=== PATIENT | female | born 1930 | race Caucasian/White ===

== ENCOUNTER 2018-04-23 06:02 | Day surgery (SDC) | payer OTHER, BC ==
[~2018-04-23] VITALS: Ht 154.9 cm; Wt 54.4 kg
--- NOTE | ~2018-04-23 | PATH ---
[facility] [address] [place] [address] PATHOLOGY RPT PROCEDURE Name: BERNICE MILLER Room #: [place] [facility] [place].R.#: [id number] Admission: 04/23/18 Date of : 34 Discharge: 04/23/18 Report #: [id number] Path Case #: [id number] LCA Accession Number: [id number] . 01 Material submitted: . LEFT BREAST MASS, SHORT SUTURE SUPERIOR, LONG SUTURE LATERAL . 01 Clinician provided ICD-10: ' . 01 Clinical history: . Left breast mass . 02 Diagnosis: "Left breast mass", lumpectomy: - Benign breast tissue with previous biopsy site changes. - Small scattered foci of fibrocystic changes including stromal fibrosis, cyst formation, usual duct hyperplasia, columnar cell hyperplasia and duct ectasia; no cytologic atypia or malignancy seen. [facility]/04/27/2018 . 02 Comment: The patient has a history of "complex sclerosing lesion" from a previous left breast 12:00 position 5 cm from nipple needle core biopsy (Umair and Trevor case [id number]; biopsy report reviewed only, no slide review performed). Again, no cytologic atypia or malignancy is identified within the current lumpectomy specimen. Clinical and radiographic correlation is recommended. The case is discussed with Dr. Sam Muñoz on 04/27/2018 at 9:00 AM and again at approximately 2:30 PM. (CLW:pit; 04/27/2018) . 02 Electronically signed: . Alanis Steward MD, Pathologist NPI- [id number] . 01 Gross description: . The specimen is received fresh from the OR labeled, "Bernice Miller, left breast mass, short suture superior, long suture lateral" is an oriented lumpectomy specimen. Received on an [facility] map with needle localization wire in place and accompanying mammographic films, is an oriented lumpectomy. The area of interest under the needle localization wire is inked orange. The specimen is fixed in formalin. Reported time out of body is 1155 on 04/23/18. Time placed in formalin is 1225 on 04/23/18. (CLW:mgr; 04/23/18) . Received is a 37 g lumpectomy specimen oriented with a short suture [address] [address] PATHOLOGY RPT PROCEDURE Name: BERNICE MILLER Room #: [place] [facility] M.R.#: [id number] Admission: 04/23/18 Date of : 32 Discharge: 04/23/18 Report #: [id number] Path Case #: [id number] designating the superior margin and a long suture designating the lateral margin. The specimen measures 6.6 cm from medial to lateral, 6.3 cm from anterior to posterior, and 2.9 cm from superior to inferior. There is an attached ellipse of skin pale ponce skin on the anterior aspect measuring 3.8 x 0.6 cm. There is a slight amount of orange ink applied to the superior aspect indicating the area of interest. The specimen is inked as follows: Superior-blue, inferior-green, lateral-red, medial-yellow, anterior-black, posterior-orange. Sectioning reveals a slight amount of white-ponce fibrous tissue present, with a slight amount of fat necrosis, underneath the previously inked orange area of suspicion. No distinct tumor is grossly identified. The specimen is submitted representatively as follows: . A1 most medial margin A2 most lateral margin A3-A8 entire area of suspicion submitted from medial to lateral aspects. . The cold ischemic time is 30 minutes. The total formalin fixation time is 57 hours and 25 minutes. (CAA; 04/25/2018) QAC/QRQ . 02 Pathologist provided ICD-10: N60.12, N60.32, N62, N60.42 . 02 CPT . 768774 Performed at: [address], [place] [id number] MD Lazarus Lyn MD Phone: [phone] Performed at: [address] [id number] MD Lindsey Cortez MD Phone: [phone]
--- NOTE | ~2018-04-23 | O ---
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 POSTOPERATIVE DIAGNOSIS: Complex sclerosing lesion/radial scar in the left breast at 12 o'clock, 5 mm in size. PROCEDURES PERFORMED: Left lumpectomy with ultrasound-placed needle localization. ANESTHESIA: IV sedation, local 0.25% Marcaine. COMPLICATIONS: None. ESTIMATED BLOOD LOSS: 5 mL. FINDINGS: The mammographic evaluation of the specimen suggested the nodule is removed within the specimen. DESCRIPTION OF PROCEDURE: With the patient under IV sedation, the left breast was prepped and draped in sterile fashion. The area of the lesion was seen on ultrasound and a marking pen was placed directly over this. The left breast was then prepped and draped in sterile fashion. Timeout was performed. Then, using the ultrasound in a sterile sleeve, a needle was placed lateral to the lesion and the tip of a spinal needle was left at the site of the lesion. The rest of the skin was then anesthetized with 0.25% Marcaine. Small ellipse of the skin was excised, which included the spinal needle. Dissection was then carried superiorly and inferiorly, freeing the breast tissue from the overlying skin and then the breast was dissected medial to about 10:30 position. The posterior dissection was then carried out to the level of the pectoralis fascia at the central portion of the lumpectomy. The lumpectomy specimen was then lifted out of the breast. The lateral dissection was then completed. Suture was placed superiorly, short stitch was placed superiorly and a longer stitch was placed laterally. Specimen was sent to mammography. I did receive a call, it looks like the lumpectomy specimen does contain a nodular density. Pathologist was then asked to come and take the specimen. I described to her the orientation of the specimen. At the end of the case, she and I both can feel a thickening consistent with the lesion or the biopsy effect. The specimen will be processed [address] [address] OPERATIVE REPORT Name: ROBBY MILLER Room #: DEP [facility] [place] M.R.#: [id number] Admission: 04/23/18 Attend Phys: Sam Muñoz MD Discharge: 04/23/18 Date of : 32 Report #: [id number] for permanent section with analysis of the margins. Hemostasis was obtained and irrigation was performed. The subcutaneous tissue was closed with 4-0 PDS. Skin was closed with 5-0 PDS. Dermabond, fluffy 4 x 4, and OpSite were used for dressing. The patient tolerated the procedure well. By: 1117 1144 Sam Muñoz MD /nt
--- NOTE | ~2018-04-23 | H ---
[facility] [place] [address] [place] [address] HISTORY AND PHYSICAL Name: ROBBY MILLER Room #: [place] [facility] [place].R.#: [id number] Admission: Attend Phys: Sam Muñoz MD Discharge: Date of : 32 Report #: [id number] THIS REPORT FOR: //name// CC: Sam Spears MD DATE OF SERVICE: 04/23/2018 PREOPERATIVE DIAGNOSIS: Left breast mass at 12 o'clock, ____ cm from the nipple, which was diagnosed as complex sclerosing lesion/radial scar. The patient is here for excision of this lesion. HISTORY OF PRESENT ILLNESS: The patient is an 87-year-old who has had yearly mammogram. Her latest mammogram showed a 5-mm nodule in the left upper outer quadrant. This had a spiculated margin 6 cm posterior to the nipple. Ultrasound was performed. The right breast was unremarkable. Ultrasound showed a 5-mm hypoechoic nodule with irregular margins corresponding to the mammographic abnormality. The patient was seen in the office and a biopsy was performed. The patient does not do self-exam. She denies any skin changes. No discharge. The patient does have family history of breast cancer. Daughter had breast cancer at age 46 in 2003. She had chemoradiation. A paternal aunt had breast cancer at age 65. A biopsy was performed in the office under ultrasound guidance. This was somewhat difficult because the lesion was quite small. The pathology report showed a complex sclerosing lesion. The lesion was felt to be complex sclerosing lesion/radial scar. Excision is recommended. The patient is here for excisional biopsy of this mass. PAST MEDICAL HISTORY: The patient had kidney infection with urosepsis and history of laryngitis. PAST SURGICAL HISTORY: Right breast biopsy of benign nodule in 1997; hysterectomy for cervical carcinoma in situ; 4 abdominal kidney stone surgeries in her 20s and 30s. MEDICATIONS: The patient takes Lipitor, Sular tabs, Prilosec, tramadol, Macular Shield, calcium, fish oil, flaxseed oil, vitamin B12, magnesium, Tylenol Extra Strength. ALLERGIES: SHE IS ALLERGIC TO KEFLEX, CAUSED A RASH; CYMBALTA CAUSES BAD DIARRHEA. FAMILY HISTORY: Father had a stroke and also had heart attack. Mother had colon cancer that metastasized to the liver. 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 She does not [address] [place] [address] HISTORY AND PHYSICAL Name: ROBBY MILLER Room #: [place] [facility] [place] M.R.#: [id number] Admission: Attend Phys: Sam Muñoz MD Discharge: Date of : 32 Report #: [id number] smoke, does not drink. REVIEW OF SYSTEMS: She does have history of macular degeneration, diagnosed 12 years ago. She has arthritis. No chest pain or shortness of breath. PHYSICAL EXAMINATION: GENERAL: The patient is a well-developed, well-nourished, elderly female, in no acute distress. HEENT: Pupils react to light. Extraocular muscles are intact. Oropharynx is clear. NECK: Soft and supple, no masses. LUNGS: Clear to auscultation. HEART: Regular rate and rhythm, no murmur or gallop. ABDOMEN: Soft, nondistended, nontender. BREASTS: No dominant mass detected. No skin changes. No axillary adenopathy. No supraclavicular adenopathy. EXTREMITIES: No cyanosis, clubbing or edema. IMPRESSION: The patient is an 87-year-old who had an abnormal mammogram this year. A 5-mm nodule was identified in the upper outer quadrant on 3D mammography. Ultrasound showed at 12 o'clock, 4 cm from the nipple, there is a 5-mm hypoechoic nodule. Biopsy was performed. She does have fairly high risk for breast cancer as there is a family history. The biopsy was performed and came back with a complex sclerosing lesion. The patient is recommended to undergo excision of this. The procedure was discussed in detail. If the lesion does not get upgraded, then the patient does not need any further procedure. If this comes back invasive cancer, there is a possibility that the patient will need to have a lymph node biopsy. I am thinking the excisional biopsy be performed with lumpectomy in this elderly female. The patient understands and wishes to proceed. We will target the lesion with preop ultrasound. By: 28 58 Sam Muñoz MD /nt
--- NOTE | ~2018-04-23 | EKG ---
[address] [address] [facility] [place] [address] ELECTROCARDIOGRAM REPORT Name: ROBBY MILLER Room #: DEP [facility]#: [id number] Admission: 04/23/18 Attend Phys: Sam Muñoz MD Discharge: 04/23/18 Date of : 32 Report #: [id number] THIS REPORT FOR: //name// [facility] Test Date: 2018-04-23 Test Time: 10:08:01 Pat Name: ROBBY MILLER Department: Room: 150 10 Gender: F Cover Inspector: DAIANA : 1930 Requested By: Sam Muñoz Order Number: [id number] MD: Cesar Pratt Measurements Intervals [place] Rate: 72 P: 47 VA: 167 QRS: -18 QRSD: 104 T: 21 QT: 407 QTc: 446 Interpretive Statements Sinus rhythm Ventricular premature complex Borderline left axis deviation Borderline repolarization abnormality Compared to ECG 06/30/2011 15:36:02 Ventricular premature complex(es) now present Electronically Signed On 04-24-2018 8:35:11 CDT by Cesar Pratt [email or web address] <ELECTRONICALLY SIGNED> By: Cesar Pratt MD, [facility] 04/24/18 0835 1008 1008 Cesar Pratt MD, [facility] /EPI
[~2018-04-23 06:02] MED LIST: ASA5UEC; CALCIUM CITRAT1 EAC7 PO; CALCIUM CITRAT1 EAC9 PO; CARAFATE 1 GM TA1 G1 PO; COQ-10100 MG PO; FISH OIL 1,001000 M2 PO; FISH OIL 1,2001 EAC3; FLAXSEED OIL1000 MG PO; GLUCOSAMINE &1 EACH; HYDROCODON-ACE1 EAC7 PO; ICAPS TABLET1 EACH PO; LIPITOR10 MG PO; LIPITOR20 MG PO; LUTEIN20 MG PO; MAGNESIUM HYDR500 GM PO; PRESERVISION A1 EAC2 PO; PRILOSEC 20 MG20 MG PO; SULAR20 MG PO; SYSTANE ULTRA1 EACH OP; TRAMADOL 50 MG50 MG PO; TYLENOL EXTRA500 MG PO; VITAMIN B-12500 MCG PO; VITAMIN D-32000 UNIT PO
[2018-04-23 09:44] VITALS: BP 155/91
[2018-04-23 12:44] VITALS: BP 155/91
== END 2018-04-23 13:10 | disposition home or self-care (01) ==
LOC: OR 06:02 → TBA 06:02 → OR 07:45
DX: N60.12 Diffuse cystic mastopathy of left breast (principal); N60.02 Solitary cyst of left breast; Z87.09 Personal history of other diseases of the respiratory system; Z86.19 Personal history of other infectious and parasitic diseases; Z88.8 Allergy status to other drugs, medicaments and biological substances; Z90.710 Acquired absence of both cervix and uterus; Z98.890 Other specified postprocedural states; M19.90 Unspecified osteoarthritis, unspecified site; Z82.3 Family history of stroke; Z82.49 Family history of ischemic heart disease and other diseases of the circulatory system; Z83.79 Family history of other diseases of the digestive system
CPT/HCPCS: 50010; 50101; 50386; 50417; 51301; 54118; 56525; 56526; 62110; 62850; 70005

== ENCOUNTER 2021-08-23 13:33 | Inpatient (IN) | payer OTHER ==
[~2021-08-23] VITALS: Ht 152.4 cm; Wt 41.2 kg
--- NOTE | ~2021-08-23 | EMS ---
[address] [address] EMS Patient Care Report Name: BERNICE MILLER Room #: REG BRYANNA Carrillo#: [id number] Admission: 08/23/21 Attend Phys: Discharge: Date of : 32 Report #: [id number] THIS REPORT FOR: //name// Report Transmitted: 08/23/2021 14:30 EMS Care Summary [facility] Incident [id number] @ 08/23/2021 12:39 Incident Location [address] [place] [address] Patient BERNICE MILLER Female, 89 Years 1930 Patient Address [address] [place] [address] Patient History Hypertension (HTN),Hyperlipidemia, Patient Allergies Keflex,Other drug allergy, Patient Medications Prilosec, Amlodipine, Tramadol, Chief Complaint L hip pain Disposition Transported No Lights/[place] Dispatch Reason Falls Transported To [facility] Narrative Bernice fell while trying to get out of the bed. She complains of severe pain in her L hip and her R elbow. She did not hit her head or have a loss of consciousness. She thinks she fell at about 10am. Her daughter reports that confusion is normal for Bernice. She has not been ill recently. [facility] [address] [place] [address] EMS Patient Care Report Name: BERNICE MILLER Room #: DAVID Carrillo#: [id number] Admission: 08/23/21 Attend Phys: Discharge: Date of : 32 Report #: [id number] Upon our arrival we found her laying prone with her legs under the bed. Following pain control we rolled her onto a tarp stretcher and carried her down to the cot. She had no change en-route. Sheet pull to ED bed with report to RN. Initial Vitals @13:08P: 101,BP: 193/113,SpO2: 98, @13:18P: 94,BP: 183/105,SpO2: 97, @12:56P: 94,R: 18,BP: 156/102,Pain: 10/10,Temp: 98.2F,SpO2: 97, Impression Injury of Hip Procedures @12:54 IV Therapy - Saline Lock 10cc (18 ga) Site: Forearm-Left Response: UnchangedSucceeded @12:55 Fentanyl - 50 Micrograms (mcg) - Intravenous (IV) Response: Improved @13:01 Fentanyl - 50 Micrograms (mcg) - Intravenous (IV) Response: Improved @13:01 Stretcher Response: Unchanged @13:06 Surgical Mask on Patient Response: Unchanged Timeline 12:36,Call Received 12:36,Psap Call 12:39,Dispatched 12:40,En Route 12:47,On Scene 12:48,At Patient 12:54,IV Therapy - Saline Lock 10cc 18 ga Site: Forearm-Left,Response: UnchangedSucceeded, 12:55,Fentanyl - 50 Micrograms (mcg) - Intravenous (IV),Response: Improved 12:56,BP: 156/102 M,PULSE: 94,RR: 18 R,SPO2: 97 Ox,ETCO2: ,BG: ,PAIN: 10,GCS: , 13:01,Stretcher,Response: Unchanged 13:01,Fentanyl - 50 Micrograms (mcg) - Intravenous (IV),Response: Improved 13:06,Surgical Mask on Patient,Response: Unchanged 13:08,BP: 193/113 M,PULSE: 101,RR: R,SPO2: 98 Ox,ETCO2: ,BG: ,PAIN: ,GCS: , 13:09,Depart Scene 13:18,BP: 183/105 M,PULSE: 94,RR: R,SPO2: 97 Ox,ETCO2: ,BG: ,PAIN: ,GCS: , 13:28,At Destination 13:47,Call Closed Disclaimer v1.1 Copyright 2020 [employer] [address] [address] EMS Patient Care Report Name: BERNICE MILLER Room #: REG BRYANNA Carrillo#: [id number] Admission: 08/23/21 Attend Phys: Discharge: Date of : 32 Report #: [id number] This EMS Care Summary contains data elements from the applicable legal record (which may be displayed differently). It is designed to provide pertinent information for the following purposes: continuity of care, clinical quality, and state data reporting. The complete legal record is available to ED staff and administrators of the receiving hospital in [employer] Patient Tracker. All data is provided "as is."
[2021-08-23 13:35] VITALS: BP 174/108
[2021-08-23 14:26] LABS: ABSOLUTE NEUTROPHILS 8.7 thou/uL (1.4-8.2); BASOPHILS 0.1 % (0.0-2.0); EOSINOPHILS 0.1 % (0.0-3.0); HEMOGLOBIN 14.3 gm/dL (12.0-15.0); LYMPHOCYTES 8.6 % (24.0-44.0); MCH 31.2 pg (26.0-34.0); MCHC 33.9 g/dL (28.0-37.0); MCV 91.8 fL (80.0-100.0); MONOCYTES 7.9 % (1.0-8.0); PLATELET COUNT 296 thou/uL (150-400); POLYS 83.3 % (36.0-66.0); RBC 4.58 mil/uL (4.20-5.00); RDW 13.5 % (10.5-14.5); WBC 10.4 thou/uL (4.0-11.0)
[2021-08-23 14:29] LABS: CREATININE 0.7 mg/dL (0.6-1.0)
[2021-08-23 14:38] LABS: POTASSIUM 3.8 mmol/L (3.5-5.1)
[2021-08-23 19:14] VITALS: BP 148/96
[2021-08-23 20:15] VITALS: BP 153/87
[2021-08-23 20:45] VITALS: BP 151/93
--- NOTE | 2021-08-24 03:30 | NUR ---
PT ARRIVED ON THE UNIT AT 2030. PT IS ALERT AND ORIENTED X2-3. PT WAS ORIENTED TO THE ROOM AND EDUCATED ON THE USE OF CALL LIGHT. HERRMANN IS IN PLACE WHUCH IS PATENT. DAUGHTER(ZEINAB) CALLED THE UNIT AND SAID SHE WILL BE HERE IN THE MORNING TO SIGN ALL CONSENTS AND WILL COME ALONG WITH ADVANCE DIRECTIVE. PT IS ON RA. NO VISIBLE SIGN OF DISTRESS WAS NOTED. FALL PRECAUTIONS IN PLACE. WILL CONTINUE TO MONITOR
[2021-08-24 04:34] VITALS: BP 146/77
[2021-08-24 07:49] VITALS: BP 151/86
[2021-08-24 15:25] VITALS: BP 96/55
--- NOTE | 2021-08-24 16:35 | NUR ---
PT ADMITTED RELATED TO L HIP FX. CM REVIEWED CHART AND SPOKE WITH CARE TEAM. PT INDICATED SHE RESIDES IN A DUPLEX. 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 DTR WORKS IN [employer] AND IS OUT OF HE HOME FOR PERIODS OF TIME. PT HAS A CANE AND FWW FOR USE AT HOME. PT HAS ALL NEEDS ON 1 LEVEL BUT HAD BEEN ON SECOND FLOOR WHEN SHE HAD FALLEN. PT HAD HH 5-6 YRS AGO. 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 CM PROVIDED PT AND DTR SNF LIST FOR POSSIBLE REVIEW. CM FOLLOWING REGARDING DC PLANNING.
[2021-08-24 20:11] VITALS: BP 113/59
--- NOTE | 2021-08-25 04:59 | NUR ---
Pt. rested quietly during the night when checked on during frequent rounds. Dressing to left hip is intact. Ice applied to the area. Bed alarm is on.
[2021-08-25 07:00] VITALS: BP 140/67
--- NOTE | 2021-08-25 12:10 | NUR ---
Assess due to low BMI 17.7. Pt admit with hip fracture after fall at home and s/p surgical intervention on 08/24. Visit with pt, reports "I was starving this morning and I just couldn't wait to eat!" Also tolerated meal following surgery yesterday. presents very thin but also states she feels bedscale wt of 90 lb is inaccurate and that she weighs 118 lb. Suggest reweigh. BG levels elevated 130-233 and no hx diabetes noted. Consider A1C level. Pt refuses any oral supplements and states "I just like to eat." Presents low nutrition risk
--- NOTE | 2021-08-25 12:33 | NUR ---
ASSUMED CARE AT 0700. PATIENT IS ALERT AND ORIENTED X4. PATIENT BEST'S, GRIPSA ARE EQUAL. LUNGS ARE CLEAR. ABD IS SOFT WITH BSX4. PATIENT HAS S.L. IN HER LEFT FORARM. PATIENT HAS DURABOND TO LEFT HIP. PATIENT IS WEIGHT BEARING TOLERATED. ON THE LEFT. UP IN THE CHAIR WITH P.T. FOR LUNCH. FALL AND SAFETY PROTOCOLS IN PLACE. C/O LEFT HIP PAIN. MEDICATED WITH SCED PAIN MED. WILL COTINUE TO MONITER.
--- NOTE | 2021-08-25 16:11 | NUR ---
THERAPY SEEING PT THIS DAY. POST ACUTE CARE STAY CURRENTLY BEING RECOMMENDED. CM TO FOLLOW UP WITH PT AND DTR ABOUT PLACEMENT OPTIONS. CM FOLLOWING INDICATED WITH DC PLANNING.
[2021-08-25 17:00] VITALS: BP 149/73
[2021-08-25 19:45] VITALS: BP 124/80
--- NOTE | 2021-08-26 04:04 | NUR ---
ASSUMED PT CARE THIS PM. PT IS ALERT AND ORIENTED X4. PT HAS INCISION TO THE LEFT HIP WITH NO NESTOR JUST DERMABOND. PT DID NOT C/O PAIN. PT HAS HERRMANN IN PLACE. PT DID NOT VERBALIZE ANY CONCERNS AND NO VISIBLE SIGN OF DISTRESS WAS NOTED. PT IS ON RA. FALL PRECAUTIONS IN PLACE. WILL CONTINUE TO MONITOR.
[2021-08-26 07:27] VITALS: BP 130/76
--- NOTE | 2021-08-26 15:09 | NUR ---
CM MET WITH PT AND DTR AT BEDSIDE THIS DAY. THEY ARE ASKING THAT REFERRAL BE SENT TO [facility] FOR REVIEW FOR POSSIBLE ADMISSION. ORTHO INDICATED THAT THEY HAD ORDERED HINGED KNEE BRACE THAT IS TO BE WORN LOCKED WHEN OUT OF BED UNTIL NERVE PALSY IS RESOLVED. CM FAXED REFERRAL. CM FOLLOWING REGARDING DC PLANNING.
--- NOTE | 2021-08-26 16:30 | NUR ---
Alert and orientated X 4. Calm and cooperative. Breath sounds clear. Reg HR auscultated. Color pale pink with brisk capillary refill and palpable peripheral pulses. Clear yellow urine per kennedy to DD. Active bowel sounds over soft, rounded abdomen. Staff reports pt trying to dig out stool from rectum yesterday and today. Dr. Uribe office notified, placed order for enema. Up to chair several times by PT. States she has pain of 7 per L hip/incision. Ice pack applied. Pt requesting pain tablet, oxycodone given, sleeping upon reassessment.
[2021-08-26 20:13] VITALS: BP 106/57
--- NOTE | 2021-08-27 04:03 | NUR ---
ASSUMED PT CARE THIS PM. PT IS ALERT AND ORIENTED X4. PT HAS INCISON TO THE LEFT HIP WITH A DERMABOND. PT C/O PAIN WHICH WAS MANAGED BY PRN MEDS. NO VISIBLE SIGN OF DISTRESS WAS NOTED. PT IS ON RA. HERRMANN IS IN PLACE. FALL PRECAUTIONS IN PLACE. WILL CONTINUE TO MONITOR.
[2021-08-27 07:25] VITALS: BP 123/72
[2021-08-27 09:10] VITALS: BP 123/72
[2021-08-27] MEDS ORDERED: MIRALAX17 GM PO (13:26)
[2021-08-27] MEDS ORDERED: ASPIRIN EC325 M1 PO (13:28)
--- NOTE | 2021-08-27 15:58 | NUR ---
Assumed pt care at 7am.Pt in bed resting and waiting for breakfast. Assessment completed.vss.Pt c/o left hip pain and requested for pain med.Paterson given with am meds with relief.Assisted pt with tary setup at [facility]. Fair appetite noted. Cm informed this rn that [facility] today.Drt notified. Dc summary compile and chart copy done. Report given to Bobby benitez at [facility]. Saline lock dc'd. Pt left per wc van accompanied by dtr.
== END 2021-08-27 16:07 | DRG 522 ==
LOC: ER 13:33 → EROBS 15:35 → 4W 15:35
PROVIDERS: Emergency Medicine; ADMIT Hospitalist; ATTEND Hospitalist
PROC: 0SRS019 Replacement of Left Hip Joint, Femoral Surface with Metal Synthetic Substitute, Cemented, Open Approach (ICD-10-PCS; principal; 2021-08-24)
DX: S72.002A Fracture of unspecified part of neck of left femur, initial encounter for closed fracture (principal); Z20.822 Contact with and (suspected) exposure to COVID-19; Z79.899 Other long term (current) drug therapy; Y93.89 Activity, other specified; Y92.89 Other specified places as the place of occurrence of the external cause; Y99.8 Other external cause status; Z88.8 Allergy status to other drugs, medicaments and biological substances; W06.XXXA Fall from bed, initial encounter; K56.41 Fecal impaction; Z90.710 Acquired absence of both cervix and uterus; M19.90 Unspecified osteoarthritis, unspecified site; I10 Essential (primary) hypertension; G58.8 Other specified mononeuropathies
CPT/HCPCS: 10040; 50010; 50101; 50382; 50414; 50855; 51057; 51130; 51225; 51226; 51538; 52304; 53000; 53078; 56460; 56524; 56527; 56528; 57095; 57103; 57165; 58637; 58960; 62110; 62900; 70005

== ENCOUNTER → 2021-11-15 | Outpatient (CLI) | payer OTHER ==
[~2021-11-15] VITALS: Ht 157.5 cm; Wt 42.6 kg
[~2021-11-15] MED LIST changes: +ASPIRIN EC325 M1 PO; +MIRALAX17 GM PO
--- NOTE | 2021-11-17 15:07 | PATH ---
[facility] [address] [place] [address] PATHOLOGY RPT PROCEDURE Name: BERNICE MILLER Room #: REG KELLY M.R.#: [id number] Admission: 11/15/21 Date of : 34 Discharge: Report #: [id number] Path Case #: [id number] [facility] Accession Number: [id number] . 01 Material submitted: . gastrointestinal site - GASTRIC ULCER BIOPSIES . 01 Clinical history: . RE CHECK HEALING ULCERS . 02 Diagnosis: Gastric mucosa (ulcer biopsies): - Changes consistent with healing ulcer with mild chronic gastritis and mild glandular hyperplasia, negative for dysplasia, negative for intestinal metaplasia, negative for Helicobacter-like organisms. LBQ 11/17/2021 1224 Local . 02 Comment: IHC for H. pylori on A1: Negative ([facility]/christin; 11/17/2021) . 02 Electronically signed: . Sushant Donahue MD, Pathologist NPI- [id number] . 01 Gross description: . The specimen is received in formalin, labeled "Roll, Bernice, gastric ulcer biopsies". Received are 5 segments of pale ponce tissue ranging in size from 0.2 cm to 0.3 cm in maximum dimensions. The specimen is submitted entirely in cassette A1.([facility]; 11/16/2021) [facility] 11/16/2021 1110 Local . 02 Pathologist provided ICD-10: K25.9 . 02 CPT . 065089, [id number] Specimen Comment: A courtesy copy of this report has been sent to [phone] Specimen Comment: Report sent to Performed at: 01 [facility] [address] [id number] MD Hector Sherman MD Phone: [phone] Performed at: 02 [facility] [address] [id number] MD Sushant Donahue MD Phone: [phone]
== END | disposition home or self-care (01) ==
LOC: GI 07:38
PROVIDERS: ATTEND Internal Medicine Gastroenterology
DX: K25.9 Gastric ulcer, unspecified as acute or chronic, without hemorrhage or perforation (principal); K57.10 Diverticulosis of small intestine without perforation or abscess without bleeding; K29.50 Unspecified chronic gastritis without bleeding; K31.4 Gastric diverticulum; K44.9 Diaphragmatic hernia without obstruction or gangrene; I10 Essential (primary) hypertension; M19.90 Unspecified osteoarthritis, unspecified site; E78.00 Pure hypercholesterolemia, unspecified; Z98.890 Other specified postprocedural states; Z90.710 Acquired absence of both cervix and uterus; Z79.899 Other long term (current) drug therapy; Z20.822 Contact with and (suspected) exposure to COVID-19; Z88.8 Allergy status to other drugs, medicaments and biological substances
CPT/HCPCS: 62110; 62900